=== PATIENT | male | born 1950 | race Caucasian/White ===

== ENCOUNTER 2019-11-12 11:32 | Inpatient (IN) | payer MEDICARE, OTHER ==
[~2019-11-12] VITALS: Ht 188 cm; Wt 136.0 kg
[~2019-11-12 11:32] MED LIST: [UNRECOGNIZED DRUG - REMARK]
[2019-11-12] MEDS ORDERED: ACETAMINOPHEN 325 MG TAB PO ONE (14:45)
[2019-11-12 14:46] LABS: Basophils # (auto) 0.1 10 ^3/uL (0-0.2); Basophils % (auto) 0.7 % (0.0-2.0); Eosinophils # (auto) 0.1 10 ^3/uL (0-0.8); Eosinophils % (auto) 1.1 % (0.0-7.0); Hematocrit 44.6 % (41.0-53.0); Hemoglobin 14.9 g/dL (13.5-17.5); Lymphocytes # (auto) 1.5 10 ^3/uL (0.4-5.4); Lymphocytes % (auto) 21.9 % (10.0-50.0); Mean Corpuscular Hemoglobin 29.9 pg (28.0-32.0); Mean Corpuscular Hgb Conc. 33.5 g/dL (32.0-36.0); Mean Corpuscular Volume 89.2 fL (80.0-100.0); Monocytes # (auto) 0.6 10 ^3/uL (0-1.3); Monocytes % (auto) 8.6 % (0.0-12.0); Neutrophils # (auto) 4.6 10 ^3/uL (1.6-8.6); Neutrophils % (auto) 67.7 % (37.0-80.0); Nucleated Red Blood Cells % 0.1 %; Platelet Count (auto) 237 10^3/uL (140-450); Red Cell Distribution Width 14.1 % (11.8-14.3); White Blood Cell 6.8 10^3/uL (4.4-10.8)
[2019-11-12 14:59] LABS: Alanine Aminotransferase 43 U/L (16-61); Albumin 3.9 g/dL (3.4-5.0); Anion Gap 5 (5-15); Blood Urea Nitrogen 21 mg/dL (7-18); Calcium 9.9 mg/dL (8.5-10.1); Carbon Dioxide 26 mmol/L (21-32); Chloride 108 mmol/L (98-107); Glucose 181 mg/dL (74-106); INR 1.15 (0.9-1.15); Partial Thromboplastin Time 26.2 sec (23.64-32.05); Potassium 4.1 mmol/L (3.5-5.1); Sodium 139 mmol/L (136-145)
[2019-11-12 15:05] LABS: Alkaline Phosphatase 94 U/L (45-117); Aspartate Aminotransferase 52 U/L (15-37); BUN/Creatinine Ratio 19.3; Bilirubin, Total 0.6 mg/dL (0.2-1.0); GFR African American 86 mL/min; GFR Non-African American 71 mL/min; Total Protein 8.9 g/dL (6.4-8.2)
[2019-11-12 15:36] LABS: Blood Alcohol < 3.0 mg/dL (0-5)
[2019-11-12 15:53] LABS: Urine Bacteria NONE SEEN /hpf (None Seen); Urine Blood Negative /uL (Negative); Urine Specific Gravity 1.018 (1.001-1.035); Urine WBC 1 /hpf (0 - 3)
[2019-11-12] MEDS ORDERED: GABAPENTIN 300 MG CAP ONE (15:57)
[2019-11-12] MEDS ORDERED: GABAPENTIN 300 MG CAP PO ONE (16:00)
[2019-11-12] MEDS ORDERED: HYDROcodone-ACET 10/325MG TAB PO ONE (16:30)
[2019-11-12] MEDS ORDERED: SOD CHL 0.45% 1,000 ML IV SCH (16:58)
[2019-11-12] MEDS ORDERED: MORPHINE SULF INJ 2 MG/ML SYRINGE 1ML IV PRN ×2 (17:00)
[2019-11-12] MEDS ORDERED: NITROGLYCERIN 0.4 MG SL TAB SL PRN ×2 (17:00)
[2019-11-12] MEDS ORDERED: DOCUSATE SOD 100 MG CAP PO PRN (17:00)
[2019-11-12] MEDS ORDERED: hydrALAZINE HCL 20 MG/ML VL IV PRN (17:00)
[2019-11-12] MEDS ORDERED: METOPROLOL SUCCINATE XL 50 MG TAB PO ONE (17:00)
[2019-11-12] MEDS ORDERED: ONDANSETRON HCL 4 MG/2 ML VIAL IV PRN (17:00)
[2019-11-12] MEDS ORDERED: LORazepam 0.5 MG TAB PO PRN (17:00)
[2019-11-12] MEDS ORDERED: ALUM & MAG HYDROX-SIMETH LIQ(MAALOX) 30 ML PO PRN (17:00)
[2019-11-12] MEDS ORDERED: HYDROcodone-ACET 5/325MG TAB PO PRN (17:00)
[2019-11-12] MEDS ORDERED: LISINOPRIL 20 MG TAB PO ONE (17:00)
[2019-11-12 17:56] LABS: Cholesterol 226 mg/dL (< 200)
[2019-11-12 17:59] LABS: HDL Cholesterol 57 mg/dL (40-59); LDL Cholesterol 151 mg/dL (< 100); Triglycerides 144 mg/dL (< 150)
[2019-11-12] MEDS: MORPHINE SULF INJ 2 MG/ML SYRINGE 1ML IV PRN (18:09)
[2019-11-12] MEDS ORDERED: CILOSTAZOL 100 MG TAB PO ONE (18:15)
[2019-11-12] MEDS: SODIUM CHLORIDE 0.9% 1,000 ML IV SCH (18:40)
[2019-11-12] MEDS ORDERED: LORazepam 2MG/ML-1ML VIAL IV PRN (21:00)
[2019-11-12] MEDS ORDERED: ATORVASTATIN 20 MG TAB PO SCH (22:00)
[2019-11-13 07:42] LABS: Basophils # (auto) 0.1 10 ^3/uL (0-0.2); Basophils % (auto) 0.7 % (0.0-2.0); Eosinophils # (auto) 0.1 10 ^3/uL (0-0.8); Eosinophils % (auto) 1.8 % (0.0-7.0); Hematocrit 42.8 % (41.0-53.0); Hemoglobin 14.4 g/dL (13.5-17.5); Lymphocytes # (auto) 2.1 10 ^3/uL (0.4-5.4); Lymphocytes % (auto) 27.7 % (10.0-50.0); Mean Corpuscular Hgb Conc. 33.7 g/dL (32.0-36.0); Monocytes # (auto) 0.8 10 ^3/uL (0-1.3); Monocytes % (auto) 11.2 % (0.0-12.0); Neutrophils # (auto) 4.4 10 ^3/uL (1.6-8.6); Neutrophils % (auto) 58.6 % (37.0-80.0); Platelet Count (auto) 242 10^3/uL (140-450); Red Blood Cells 4.82 10^6/uL (4.5-5.90); White Blood Cell 7.5 10^3/uL (4.4-10.8)
[2019-11-13 07:44] LABS: INR 1.14 (0.9-1.15)
[2019-11-13 07:52] LABS: Albumin 3.6 g/dL (3.4-5.0); Anion Gap 3 (5-15); Blood Urea Nitrogen 20 mg/dL (7-18); Calcium 9.4 mg/dL (8.5-10.1); Carbon Dioxide 25 mmol/L (21-32); Chloride 111 mmol/L (98-107); Glucose 156 mg/dL (74-106); Potassium 4.2 mmol/L (3.5-5.1); Sodium 139 mmol/L (136-145)
[2019-11-13 07:59] LABS: Alanine Aminotransferase 41 U/L (16-61); Alkaline Phosphatase 89 U/L (45-117); Aspartate Aminotransferase 49 U/L (15-37); BUN/Creatinine Ratio 19.4; Bilirubin, Total 0.8 mg/dL (0.2-1.0); GFR African American 92 mL/min; GFR Non-African American 76 mL/min; Phosphorus 2.5 mg/dL (2.5-4.90); Total Protein 8.2 g/dL (6.4-8.2)
--- NOTE | 2019-11-13 08:30 | NUR ---
Telemetry admit from ER [facility] admitted to Telemetry unit after SBAR received. Patient oriented to ASAD CARTER, primary RN, unit, room, bed, and unit policies regarding patient care and visiting hours. Patient now on continuous telemetry monitoring, tele box # 70. Patient weighed by bedscale and encouraged to call if they need something. All questions and concerns addressed, patient verbalized.
[2019-11-13 09:55] VITALS: BP 151/90
[2019-11-13] MEDS ORDERED: ENOXAPARIN SOD 40 MG/0.4 ML SYRINGE SC SCH (10:00)
[2019-11-13] MEDS ORDERED: CILOSTAZOL 100 MG TAB PO SCH (10:00)
[2019-11-13] MEDS ORDERED: ASPirin 81 mg TAB PO SCH (10:00)
[2019-11-13] MEDS ORDERED: METOPROLOL SUCCINATE XL 50 MG TAB PO SCH (10:00)
[2019-11-13] MEDS ORDERED: LISINOPRIL 20 MG TAB PO SCH (10:00)
[2019-11-13] MEDS: SODIUM CHLORIDE 0.9% 1,000 ML IV SCH (10:29)
[2019-11-13] MEDS: MORPHINE SULF INJ 2 MG/ML SYRINGE 1ML IV PRN (10:38)
[2019-11-13] MEDS ORDERED: LEVO25TA6 PO (11:42)
[2019-11-13] MEDS ORDERED: NITR0.4S29 SL (11:42)
[2019-11-13] MEDS ORDERED: INSLISPI SC (11:42)
[2019-11-13] MEDS ORDERED: LISI-646 PO (11:42)
[2019-11-13] MEDS ORDERED: METF-370 PO (11:42)
[2019-11-13] MEDS ORDERED: TOPI25CA5 PO (11:42)
[2019-11-13] MEDS ORDERED: OMEP20TA PO (11:42)
[2019-11-13] MEDS ORDERED: LIDO5CRE14 EX (11:42)
[2019-11-13 13:06] VITALS: BP 164/73
[2019-11-13] MEDS ORDERED: PRAMIPEXOLE DIHYDROCHLORIDE MO 0.25 MG TAB PO SCH (14:00)
--- NOTE | 2019-11-13 14:25 | NUR ---
PT LEFT AMA. ESCORTED TO [facility] BY RANJANA MIRZA. NO SOB OR S/S OF DISTRESS NOTED AT TIME OF AMA. Addendum: 11/13/19 at 1641 by ASAD CARTER RN LEFT AMA AT 1620
--- NOTE | 2019-11-13 14:30 | NUR ---
PT ASKING TO LEAVE AMA. SPOKE WITH DAUGHTER. EXPLAINED HIS SITUATION. SPOKE WITH PT WHO AGREED TO STAY.
--- NOTE | 2019-11-13 15:00 | NUR ---
PT CALLED DAUGHTER LUISA. DAUGHTER AGREED TO AMA AND PICK HIM UP. EXPLAINED TO HER AND PT THE POSSIBLE COMPLICATIONS OF LEAVING AMA INCLUDING THE POSSIBILITY OF . BOTH AGREED. AMA SIGNED. AWAITING DAUGHTER.
[2019-11-13] MEDS ORDERED: FLUO-125 PO ×2 (15:03→15:10)
[2019-11-13] MEDS ORDERED: HYDR-531 PO (15:10)
[2019-11-13] MEDS ORDERED: TOPI100T29 PO (15:10)
--- NOTE | 2019-11-13 15:30 | NUR ---
SPOKE WITH DR MCLEOD REGARDING AMA. INSTRUCTED TO MAKE PT AND DAUGHTER AWARE OF POSSIBLE COMPLICATIONS.
[2019-11-13] MEDS ORDERED: TOPIRAMATE 25 MG TAB PO SCH (22:00)
[2019-11-14] MEDS ORDERED: LEVOTHYROXINE SODIUM 25 MCG TAB PO SCH (07:00)
== END 2019-11-13 16:25 | disposition left against medical advice (07) | DRG 71 ==
LOC: EDUNIT# 11:32 → ER 11:32 → EDBD 11:32 → TELE 11:33 → TELE-WESTW 11-13 08:25
PROVIDERS: ADMIT Hospitalist; ATTEND Hospitalist
DX: G93.41 Metabolic encephalopathy (principal); I16.1 Hypertensive emergency; G45.9 Transient cerebral ischemic attack, unspecified; E03.9 Hypothyroidism, unspecified; E11.51 Type 2 diabetes mellitus with diabetic peripheral angiopathy without gangrene; E11.65 Type 2 diabetes mellitus with hyperglycemia; F17.200 Nicotine dependence, unspecified, uncomplicated; G25.81 Restless legs syndrome; M48.00 Spinal stenosis, site unspecified; I10 Essential (primary) hypertension; E66.9 Obesity, unspecified; G89.29 Other chronic pain; M54.5 Low back pain; K21.9 Gastro-esophageal reflux disease without esophagitis; R56.9 Unspecified convulsions; E78.00 Pure hypercholesterolemia, unspecified; G45.4 Transient global amnesia; Z79.899 Other long term (current) drug therapy; Z83.3 Family history of diabetes mellitus; Z82.49 Family history of ischemic heart disease and other diseases of the circulatory system; Z68.38 Body mass index [BMI] 38.0-38.9, adult; Z90.49 Acquired absence of other specified parts of digestive tract
CPT/HCPCS: 36415; 70450; 71046; 80053; 80061; 80320; 81001; 83036; 83735; 84100; 84484; 85025; 85379; 85610; 85730; 87040; 87081; 93005; 93306; 93886; 93926; 96361; 96374; 96375; G0378; J2405

== ENCOUNTER 2020-01-06 01:27 | Inpatient (IN) | payer MEDICARE, OTHER ==
[~2020-01-06] VITALS: Ht 182.9 cm; Wt 101.2 kg
[~2020-01-06 01:27] MED LIST changes: +FLUO-125 PO; +HYDR-531 PO; +INSLISPI SC; +LEVO25TA6 PO; +LIDO5CRE14 EX; +LISI-646 PO; +METF-370 PO; +NITR0.4S29 SL; +OMEP20TA PO; +TOPI100T29 PO; +TOPI25CA5 PO
[2020-01-06 02:56] LABS: Urine Bacteria NONE SEEN /hpf (None Seen); Urine Blood Negative /uL (Negative); Urine Hyaline Cast FEW /lpf (0 - 2); Urine Specific Gravity 1.015 (1.001-1.035); Urine WBC 1 /hpf (0 - 3)
[2020-01-06 03:00] LABS: Basophils # (auto) 0 10 ^3/uL (0-0.2); Basophils % (auto) 0.6 % (0.0-2.0); Eosinophils # (auto) 0.1 10 ^3/uL (0-0.8); Eosinophils % (auto) 1.2 % (0.0-7.0); Hematocrit 37.8 % (41.0-53.0); Hemoglobin 12.4 g/dL (13.5-17.5); Lymphocytes # (auto) 0.8 10 ^3/uL (0.4-5.4); Lymphocytes % (auto) 11.5 % (10.0-50.0); Mean Corpuscular Hemoglobin 29.5 pg (28.0-32.0); Mean Corpuscular Hgb Conc. 32.9 g/dL (32.0-36.0); Mean Corpuscular Volume 89.7 fL (80.0-100.0); Monocytes # (auto) 0.6 10 ^3/uL (0-1.3); Monocytes % (auto) 8.9 % (0.0-12.0); Neutrophils # (auto) 5.4 10 ^3/uL (1.6-8.6); Neutrophils % (auto) 77.8 % (37.0-80.0); Platelet Count (auto) 183 10^3/uL (140-450); Red Blood Cells 4.21 10^6/uL (4.5-5.90); Red Cell Distribution Width 14.2 % (11.8-14.3)
[2020-01-06 03:06] LABS: INR 1.08 (0.9-1.15); Partial Thromboplastin Time 24.2 sec (23.0-31.2)
[2020-01-06 03:07] LABS: Albumin 3.2 g/dL (3.4-5.0); Anion Gap 8 (5-15); BUN/Creatinine Ratio 21.8; Blood Alcohol < 3.0 mg/dL (0-5); Blood Urea Nitrogen 27 mg/dL (7-18); Calcium 8.2 mg/dL (8.5-10.1); Carbon Dioxide 25 mmol/L (21-32); Chloride 104 mmol/L (98-107); GFR African American 74 mL/min; GFR Non-African American 61 mL/min; Glucose 197 mg/dL (74-106); Magnesium 1.8 mg/dL (1.6-2.6); Potassium 3.6 mmol/L (3.5-5.1); Sodium 137 mmol/L (136-145)
[2020-01-06 03:09] LABS: Alcohol, Urine < 3.0 mg/dL (0-10); Amphetamine Screen, Urine NEGATIVE (NEGATIVE); Barbiturate Scree,Urine NEGATIVE (NEGATIVE); Benzodiazephine Screen, Urine POSITIVE (NEGATIVE); Cannabinoid Screen, Urine NEGATIVE (NEGATIVE); Cocaine Screen, Urine NEGATIVE (NEGATIVE); Opiate Scree,Urine NEGATIVE (NEGATIVE); Phencyclidine Screen, Urine NEGATIVE (NEGATIVE)
[2020-01-06 03:12] LABS: Alanine Aminotransferase 40 U/L (16-61); Alkaline Phosphatase 91 U/L (45-117); Aspartate Aminotransferase 41 U/L (15-37); Bilirubin, Total 0.5 mg/dL (0.2-1.0); Total Protein 7.3 g/dL (6.4-8.2)
[2020-01-06] MEDS ORDERED: dilTIAZem 25 MG/5 ML VIAL IV ONE (03:30)
[2020-01-06] MEDS ORDERED: dilTIAZem HCL 60 MG TAB PO ONE (03:30)
[2020-01-06] MEDS ORDERED: DOXYCYCLINE 100MG/250ML 250 ML IV ONE (04:45)
[2020-01-06] MEDS ORDERED: DexAMETHasone SOD PHOS 10MG/1ML VIAL INJ IV ONE (04:45)
[2020-01-06 05:05] LABS: Acetaminophen 6.4 ug/mL (10-30); Salicylate < 1.7 mg/dL (2.8-20.0)
[2020-01-06] MEDS ORDERED: SODIUM CHLORIDE 0.9% 1,000 ML IV SCH (06:47)
[2020-01-06] MEDS ORDERED: ACETAMINOPHEN 500 MG TAB PO PRN (07:00)
[2020-01-06] MEDS ORDERED: ACETAMINOPHEN 325 MG TAB PO PRN (07:00)
[2020-01-06] MEDS ORDERED: ONDANSETRON HCL 4 MG/2 ML VIAL IV PRN (07:00)
--- NOTE | 2020-01-06 10:45 | NUR ---
Telemetry admit from ER [facility] admitted to Telemetry unit after SBAR received. Patient oriented to ADALGISA JURADO,RN primary RN,COVID unit,235 room, and unit policies regarding patient care and visiting hours. Patient now on continuous telemetry monitoring, tele box #7 and telemetry reading on arrival to unit is SR 60. Patient weighed by bedscale and encouraged to call if they need something. All questions and concerns addressed, patient verbalized understanding. Note:
[2020-01-06] MEDS: cefTRIAXone 1GM/50ML D5W 50 ML IV SCH (11:01)
[2020-01-06] MEDS: ASCORBIC ACID 1,000 MG TAB PO SCH (11:02)
[2020-01-06] MEDS: DOXYCYCLINE 100 MG TAB/CAP PO SCH ×2 (11:02→22:00)
[2020-01-06] MEDS: ENOXAPARIN SOD 40 MG/0.4 ML SYRINGE SC SCH (11:02)
[2020-01-06] MEDS: ZINC SULFATE 220mg CAP or TAB PO SCH (11:02)
[2020-01-06 11:21] VITALS: BP 126/59
[2020-01-06] MEDS: HYDROcodone-ACET 5/325MG TAB PO PRN ×3 (11:49→23:47)
[2020-01-06] MEDS ORDERED: METF-370 PO (11:55)
[2020-01-06 12:00] VITALS: BP 113/73
[2020-01-06] MEDS ORDERED: GLIP10TA9 PO (12:01)
[2020-01-06] MEDS ORDERED: DULO60CA PO (12:01)
[2020-01-06] MEDS ORDERED: GABA-339 PO (12:01)
[2020-01-06] MEDS ORDERED: FENO145T27 PO (12:01)
[2020-01-06] MEDS ORDERED: CYAN-17 PO (12:01)
[2020-01-06] MEDS ORDERED: LISI-648 PO (12:01)
[2020-01-06] MEDS ORDERED: ATOR40TA52 PO (12:01)
[2020-01-06] MEDS ORDERED: DEXTROSE (50%) 50ML SYRG IV PRN (13:15)
[2020-01-06] MEDS: ALBUTEROL SULF HFA 90MCG INH 200DOSE IN SCH ×2 (14:00→22:58)
[2020-01-06 16:00] VITALS: BP 125/65
[2020-01-06] MEDS: ACCU-CHEK COMFORT CURVE STRIP VI SCH ×2 (17:00→22:54)
[2020-01-06] MEDS: InsuLIN REG 1unit/0.01ml Soln (100units/ml) SC SCH ×2 (17:32→22:55)
--- NOTE | 2020-01-06 20:00 | NUR ---
Opening Shift Note Assumed care of patient, awake and alert x4. Patient denies pain or shortness of breath at this time. No sign/symptoms of distress noted or verbalized at this time. Instructed on plan of care and encouraged patient to call for assistance as needed, patient verbalized understanding. Bed is locked in lowest position, side rails x 2 are up, call light is within reach, and bed alarm is on.
--- NOTE | 2020-01-06 20:52 | NUR ---
[facility] In house Covid-19 Swab Covid-19 swab collected and walked to lab by resource nurse Sahrla CHILEL.
[2020-01-06 22:00] VITALS: BP 133/60
[2020-01-06] MEDS ORDERED: BUDESONIDE (INHALATION) 0.5 MG/2 ML NEB NEB SCH (22:00)
--- NOTE | 2020-01-06 22:58 | NUR ---
2200 MDI TX HELD AT THIS TIME, PT COVID TEST RESULTS PENDING. PT IN NO DISTRESS. HR 64, SPO2 97%, RR19. WILL CONTINUE TO MONITOR.
--- NOTE | 2020-01-07 00:03 | NUR ---
Spoke With Hospitalist RE: Home Medication Spoke with MD Kumar regarding home medications. Orders received, repeated, and verified (see eMAR).
[2020-01-07] MEDS ORDERED: GABAPENTIN 300 MG CAP PO SCH ×3 (00:10→06:00)
[2020-01-07] MEDS ORDERED: GABAPENTIN 300 MG CAP PO ONE ×2 (00:15)
[2020-01-07] MEDS: GABAPENTIN 300 MG CAP PO SCH ×4 (00:18→22:39)
--- NOTE | 2020-01-07 00:20 | NUR ---
Run of V-tach Received call from [employer] notifying this RN that patient had 7 beats of v-tach (time: 00:12). At the time of run of v-tach this RN was in the room with the patient administrating medication. No sign/symptoms of distress was noted at that time. Patient is currently sitting in bed with even and unlabored respirations watching television. Patient denies shortness of breath or chest pain at this time. No sign/symptoms of distress noted or verbalized at this time. Vital signs are the following: BP: 127/58, HR: 58, RR: 18, TEMP: 97.7, SPO2: 96% on room air. Tele strip placed in hard chart. Will continue care.
[2020-01-07] MEDS ORDERED: OMEG100062 PO (00:39)
[2020-01-07] MEDS ORDERED: GABA-339 PO (00:39)
[2020-01-07] MEDS ORDERED: PRA1C PO (00:39)
[2020-01-07] MEDS ORDERED: LEVO25TA6 PO (00:39)
[2020-01-07] MEDS ORDERED: DIVA500T13 PO (00:39)
--- NOTE | 2020-01-07 03:45 | NUR ---
Transferred to Room 217B From [facility] Unit Report given to Pablo CHILEL. Patient transferred to room 217B via wheelchair on room air, no sign/symptoms of distress noted upon departure. Patient care endorsed to Pablo CHILEL.
--- NOTE | 2020-01-07 03:47 | NUR ---
[facility] after SBAR received from Sharri CHILEL. Patient oriented to Pablo Marcus primary RN, Central unit, 217 room, B bed, and unit policies regarding patient care and visiting hours. Upon arrival patient is sinus bradycardia in 50's. Patient placed on Room Air, weighed by bedscale and encouraged to call if they need something. All questions and concerns addressed, patient verbalized understanding. Addendum: 01/07/20 at 0518 by Pablo Marcus RN [place] [id number]
[2020-01-07 05:00] VITALS: BP 138/60
[2020-01-07] MEDS: ACCU-CHEK COMFORT CURVE STRIP VI SCH ×4 (06:05→22:00)
[2020-01-07] MEDS: InsuLIN REG 1unit/0.01ml Soln (100units/ml) SC SCH ×4 (06:12→22:00)
[2020-01-07 06:32] LABS: Basophils # (auto) 0 10 ^3/uL (0-0.2); Basophils % (auto) 0.1 % (0.0-2.0); Eosinophils # (auto) 0 10 ^3/uL (0-0.8); Eosinophils % (auto) 0.1 % (0.0-7.0); Hematocrit 35.2 % (41.0-53.0); Hemoglobin 11.9 g/dL (13.5-17.5); Lymphocytes # (auto) 1.1 10 ^3/uL (0.4-5.4); Lymphocytes % (auto) 17.2 % (10.0-50.0); Mean Corpuscular Hemoglobin 29.9 pg (28.0-32.0); Mean Corpuscular Hgb Conc. 33.7 g/dL (32.0-36.0); Mean Corpuscular Volume 88.7 fL (80.0-100.0); Monocytes # (auto) 0.6 10 ^3/uL (0-1.3); Monocytes % (auto) 8.5 % (0.0-12.0); Neutrophils % (auto) 74.1 % (37.0-80.0); Nucleated Red Blood Cells % 0.1 %; Platelet Count (auto) 191 10^3/uL (140-450); Red Blood Cells 3.97 10^6/uL (4.5-5.90); Red Cell Distribution Width 14.1 % (11.8-14.3); White Blood Cell 6.7 10^3/uL (4.4-10.8)
[2020-01-07 06:52] LABS: Albumin 3.1 g/dL (3.4-5.0); Calcium 8.8 mg/dL (8.5-10.1); Potassium 4.5 mmol/L (3.5-5.1)
[2020-01-07 06:56] LABS: BUN/Creatinine Ratio 26.7; Bilirubin, Total 0.5 mg/dL (0.2-1.0)
[2020-01-07 09:00] VITALS: BP 139/91
[2020-01-07] MEDS: cefTRIAXone 1GM/50ML D5W 50 ML IV SCH (10:52)
[2020-01-07] MEDS: DOXYCYCLINE 100 MG TAB/CAP PO SCH ×2 (10:52→22:39)
[2020-01-07] MEDS: ZINC SULFATE 220mg CAP or TAB PO SCH (10:53)
[2020-01-07] MEDS: ASCORBIC ACID 1,000 MG TAB PO SCH (10:53)
[2020-01-07] MEDS: ENOXAPARIN SOD 40 MG/0.4 ML SYRINGE SC SCH (10:53)
[2020-01-07] MEDS ORDERED: LISINOPRIL 10 MG TAB PO ONE (12:15)
--- NOTE | 2020-01-07 12:40 | NUR ---
at bedside Dr. Magno Vo at bedside. Patient updated on POC. Patient stating he needs to leave the hospital as he has to go assist his that is suffering from cancer. Patient educated on importance of taking care of himself so he can then care for others. MD recommending patient to remain in hospital and complete antibiotic treatment for his Pneumonia, and to await Cardiology recommendations. Patient unsure if he will follow MD orders and states he might leave AMA. Patient instructed by MD he has the right to leave AMA, all risks regarding leaving AMA explained to patient. Patient verbalized understanding. Patient also verbalizes he has a history of leaving AMA from hospitals as he does not leaving his unattended for too many days. No new orders received at this time. Will continue care.
[2020-01-07] MEDS ORDERED: FUROSEMIDE 20 MG/2 ML VIAL IV ONE (12:45)
[2020-01-07 12:51] VITALS: BP 139/67
[2020-01-07] MEDS: HYDROcodone-ACET 5/325MG TAB PO PRN ×2 (14:25→22:41)
[2020-01-07 17:00] VITALS: BP 152/68
--- NOTE | 2020-01-07 19:35 | NUR ---
Opening shift note Assumed care of patient who is A&Ox4, respirations even and non-labored with no s/s of distress. Discussed POC with patient who verbalized understanding. Bed in lowest locked position with 2 side rails up, call light within reach. Will continue to monitor.
[2020-01-07] MEDS: DOCUSATE SOD 100 MG CAP PO PRN (22:39)
[2020-01-07] MEDS: APIXABAN 2.5 MG TAB PO SCH (22:39)
[2020-01-07] MEDS: MAGNESIUM OXIDE 400 MG TAB PO SCH (22:40)
--- NOTE | 2020-01-07 22:40 | NUR ---
Pain Patient c/o 6/10 leg pain. Administered [place] per EMAR. Will continue to monitor.
[2020-01-07 22:59] VITALS: BP 135/65
--- NOTE | 2020-01-07 23:50 | NUR ---
Pain reassessed Patient resting, respirations even and non-labored with no s/s of distress at this time. Will continue to monitor.
[2020-01-08] MEDS: GABAPENTIN 300 MG CAP PO SCH ×3 (05:27→21:22)
[2020-01-08] MEDS: ACCU-CHEK COMFORT CURVE STRIP VI SCH ×4 (05:27→21:23)
[2020-01-08] MEDS: InsuLIN REG 1unit/0.01ml Soln (100units/ml) SC SCH ×4 (05:29→21:29)
[2020-01-08 05:31] VITALS: BP 153/72
--- NOTE | 2020-01-08 06:56 | NUR ---
Rounding Patient sleeping, respirations even and non-labored with no s/s of distress at this time.
[2020-01-08 09:00] VITALS: BP 124/64
--- NOTE | 2020-01-08 09:30 | NUR ---
at bedside Dr. Vo at bedside. Patient requesting to go home. MD recommending patient to stay for another day to continue antibiotic treatment and await to hear back from [employer] with recommendations regarding POC. Patient agrees to stay at this time.
[2020-01-08] MEDS: ASCORBIC ACID 1,000 MG TAB PO SCH (10:00)
[2020-01-08] MEDS: DOXYCYCLINE 100 MG TAB/CAP PO SCH ×2 (10:18→21:23)
[2020-01-08] MEDS: ZINC SULFATE 220mg CAP or TAB PO SCH (10:18)
[2020-01-08] MEDS: cefTRIAXone 1GM/50ML D5W 50 ML IV SCH (10:18)
[2020-01-08] MEDS: MAGNESIUM OXIDE 400 MG TAB PO SCH ×2 (10:18→21:22)
[2020-01-08] MEDS: FUROSEMIDE 20 MG/2 ML VIAL IV SCH (10:18)
[2020-01-08] MEDS: DOCUSATE SOD 100 MG CAP PO PRN ×2 (10:19→21:23)
[2020-01-08] MEDS: APIXABAN 2.5 MG TAB PO SCH ×2 (10:19→21:22)
[2020-01-08] MEDS: LISINOPRIL 10 MG TAB PO SCH (10:19)
[2020-01-08] MEDS: HYDROcodone-ACET 5/325MG TAB PO PRN ×3 (10:19→21:23)
[2020-01-08 13:00] VITALS: BP 145/78
[2020-01-08 17:09] VITALS: BP 134/68
--- NOTE | 2020-01-08 19:30 | NUR ---
Opening shift note Assumed care of patient who is A&Ox4, respirations even and non-labored with no s/s of distress at this time. Discussed POC with patient who verbalized understanding. Bed in lowest locked position with 2 side rails up. Call light within reach, advised patient to call for assistance. Will continue to monitor.
--- NOTE | 2020-01-08 21:35 | NUR ---
Pain Patient experiencing 6/10 leg pain. Administered [place] per EMAR, will continue to monitor.
[2020-01-08 22:00] VITALS: BP 141/67
--- NOTE | 2020-01-09 00:05 | NUR ---
Hospitalist called Patient experiencing anxiety and difficulty sleeping. Orders: 0.5 mg Ativan, one time dose. Orders placed.
[2020-01-09] MEDS ORDERED: LORazepam 0.5 MG TAB PO ONE (00:30)
[2020-01-09] MEDS: GABAPENTIN 300 MG CAP PO SCH (04:53)
[2020-01-09] MEDS: ACCU-CHEK COMFORT CURVE STRIP VI SCH ×2 (04:53→11:45)
[2020-01-09] MEDS: HYDROcodone-ACET 5/325MG TAB PO PRN ×2 (04:53→09:37)
[2020-01-09] MEDS: InsuLIN REG 1unit/0.01ml Soln (100units/ml) SC SCH ×2 (04:57→11:45)
[2020-01-09 05:00] VITALS: BP 151/83
--- NOTE | 2020-01-09 05:00 | NUR ---
Pain Patient 10/10 leg pain. Administered [place] per EMAR. Will continue to monitor.
[2020-01-09 08:30] VITALS: BP 149/64
[2020-01-09 09:00] VITALS: BP 149/64
[2020-01-09] MEDS: FUROSEMIDE 20 MG/2 ML VIAL IV SCH (09:32)
[2020-01-09] MEDS: MAGNESIUM OXIDE 400 MG TAB PO SCH (09:33)
[2020-01-09] MEDS: cefTRIAXone 1GM/50ML D5W 50 ML IV SCH (09:33)
[2020-01-09] MEDS: DOXYCYCLINE 100 MG TAB/CAP PO SCH (09:33)
[2020-01-09] MEDS: APIXABAN 2.5 MG TAB PO SCH (09:33)
--- NOTE | 2020-01-09 09:35 | NUR ---
Patient resting in bed with complaint of6/10 pain in both feet. Scheduled po and IV abx given per order. Patient stable at this time.
[2020-01-09] MEDS: LISINOPRIL 10 MG TAB PO SCH (09:37)
--- NOTE | 2020-01-09 10:20 | NUR ---
Patient stable with Dr. Magno Vo at bedside.
--- NOTE | 2020-01-09 11:22 | NUR ---
Patient ambulated to bathroom and back to bed. Patient stable.
--- NOTE | 2020-01-09 11:45 | NUR ---
Checked blood sugar: 256 mg/dl - will cover per sliding scale.
[2020-01-09 13:00] VITALS: BP 127/70
--- NOTE | 2020-01-09 14:15 | NUR ---
Discharge instructions Both written and verbal discharge instructions given to patient. Written prescriptions given as well. Patient verbalized understanding of instructions. All belongings with patient.
--- NOTE | 2020-01-09 14:50 | NUR ---
Discharge Peripheral IV removed intact with no active bleeding; site covered with gauze. Patient discharged to home in stable condition.
== END 2020-01-09 14:40 | disposition home or self-care (01) | DRG 917 ==
LOC: EDBD 01:27 → ER 01:27 → TELE 01:28 → TELE-EAST 10:35 → TELE-CENTR 01-07 04:02
PROVIDERS: ADMIT Hospitalist; ATTEND Family Medicine
PROC: 5A09357 Assistance with Respiratory Ventilation, Less than 24 Consecutive Hours, Continuous Positive Airway Pressure (ICD-10-PCS; principal; 2020-01-06)
DX: T40.601A Poisoning by unspecified narcotics, accidental (unintentional), initial encounter (principal); J18.9 Pneumonia, unspecified organism; G92 Toxic encephalopathy; I50.33 Acute on chronic diastolic (congestive) heart failure; N39.0 Urinary tract infection, site not specified; I48.20 Chronic atrial fibrillation, unspecified; E44.1 Mild protein-calorie malnutrition; D68.69 Other thrombophilia; E11.9 Type 2 diabetes mellitus without complications; K21.9 Gastro-esophageal reflux disease without esophagitis; E66.9 Obesity, unspecified; E78.5 Hyperlipidemia, unspecified; G89.29 Other chronic pain; H91.90 Unspecified hearing loss, unspecified ear; I11.0 Hypertensive heart disease with heart failure; I49.5 Sick sinus syndrome; S20.219A Contusion of unspecified front wall of thorax, initial encounter; Z20.828 Contact with and (suspected) exposure to other viral communicable diseases; Z91.19 Patient's noncompliance with other medical treatment and regimen; Z79.01 Long term (current) use of anticoagulants; Y92.89 Other specified places as the place of occurrence of the external cause; X58.XXXA Exposure to other specified factors, initial encounter; Y93.89 Activity, other specified; Y99.8 Other external cause status; Z68.32 Body mass index [BMI] 32.0-32.9, adult
CPT/HCPCS: 36415; 70450; 71045; 71250; 80053; 80307; 80320; 80329; 81001; 82962; 83735; 83880; 84443; 84484; 85025; 85610; 85730; 87040; 87086; 87426; 93005; G0378; J0696; J1100; J1815; J3490

== ENCOUNTER 2020-04-14 14:12 | Emergency (ER) | payer MEDICARE, OTHER ==
[~2020-04-14] VITALS: Ht 182.9 cm; Wt 103.4 kg
[~2020-04-14 14:12] MED LIST changes: +ATOR40TA52 PO; +CYAN-17 PO; +DIVA500T13 PO; +DULO60CA PO; +FENO145T27 PO; +GABA-339 PO; +GLIP10TA9 PO; -LISI-646 PO; +LISI-648 PO; +OMEG100062 PO; +PRA1C PO
[2020-04-14 15:01] LABS: Basophils # (auto) 0 10 ^3/uL (0-0.2); Basophils % (auto) 0.3 % (0.0-2.0); Eosinophils # (auto) 0 10 ^3/uL (0-0.8); Eosinophils % (auto) 0.2 % (0.0-7.0); Hematocrit 42.8 % (41.0-53.0); Hemoglobin 14.2 g/dL (13.5-17.5); Lymphocytes # (auto) 0.7 10 ^3/uL (0.4-5.4); Lymphocytes % (auto) 23.6 % (10.0-50.0); Mean Corpuscular Hemoglobin 29.5 pg (28.0-32.0); Mean Corpuscular Hgb Conc. 33.1 g/dL (32.0-36.0); Mean Corpuscular Volume 89.2 fL (80.0-100.0); Monocytes # (auto) 0.3 10 ^3/uL (0-1.3); Monocytes % (auto) 10.4 % (0.0-12.0); Neutrophils % (auto) 65.5 % (37.0-80.0); Nucleated Red Blood Cells % 0.1 %; Platelet Count (auto) 202 10^3/uL (140-450); Red Cell Distribution Width 13.8 % (11.8-14.3); White Blood Cell 3.1 10^3/uL (4.4-10.8)
[2020-04-14 15:19] LABS: Alanine Aminotransferase 29 U/L (16-61); Anion Gap 7 (5-15); Blood Urea Nitrogen 18 mg/dL (7-18); Calcium 8.6 mg/dL (8.5-10.1); Carbon Dioxide 26 mmol/L (21-32); Chloride 101 mmol/L (98-107); Glucose 207 mg/dL (74-106); Sodium 134 mmol/L (136-145)
[2020-04-14 15:24] LABS: Alkaline Phosphatase 79 U/L (45-117); Aspartate Aminotransferase 41 U/L (15-37); BUN/Creatinine Ratio 16.5; Bilirubin, Total 0.5 mg/dL (0.2-1.0); GFR African American 86 mL/min; GFR Non-African American 71 mL/min; Total Protein 7.8 g/dL (6.4-8.2)
[2020-04-14 17:32] VITALS: BP 132/73
== END 2020-04-14 17:36 | disposition home or self-care (01) ==
LOC: ER 14:12
DX: J18.9 Pneumonia, unspecified organism (principal); R07.89 Other chest pain; I11.0 Hypertensive heart disease with heart failure; I50.9 Heart failure, unspecified; K21.9 Gastro-esophageal reflux disease without esophagitis; E78.5 Hyperlipidemia, unspecified
CPT/HCPCS: 36415; 71045; 80053; 84484; 85025; 93005